=== PATIENT | male | born 1990 | race Caucasian/White ===

== ENCOUNTER 2024-02-17 17:40 | Emergency (ER) | payer MEDICAID ==
[~2024-02-17] VITALS: Ht 188 cm; Wt 86.4 kg
[2024-02-17 17:58] VITALS: BP 121/81; PULSE 67; RESP 14; O2SAT 98
[2024-02-17] MEDS ORDERED: sulfamethoxazole/trimethoprim SS (400mg/80mg) tab (single-strength) PO SCH (18:40)
[2024-02-17] MEDS ORDERED: sulfamethoxazole/trimethoprim DS (800/160mg) tablet PO ONE (18:40)
[2024-02-17] MEDS ORDERED: sulfamethoxazole/trimethoprim SS (400mg/80mg) tab (single-strength) PO ONE (18:40)
[2024-02-17] MEDS ORDERED: CEPH-585 PO (18:44)
[2024-02-17] MEDS ORDERED: SULF1TAB45 PO (18:44)
[2024-02-17] MEDS: cephalexin 250mg capsule PO ONE (19:01)
[2024-02-17] MEDS: LIDOcaine 1% 30ml preserv. free vial SQ STA (19:01)
[2024-02-17] MEDS: sulfamethoxazole/trimethoprim DS (800/160mg) tablet PO ONE (19:02)
[2024-02-17] MEDS: TETanus/Pertussis (Acell)/Diphther VAC/PF (Tdap-Adult) 0.5ml syringe IMVAC ONE ×2 (19:05→19:24)
[2024-02-17 19:06] VITALS: TEMP 98.1
== END 2024-02-17 19:25 | disposition home or self-care (01) ==
LOC: ER 17:41
DX: S90.851A Superficial foreign body, right foot, initial encounter (principal); Z79.2 Long term (current) use of antibiotics; Z79.899 Other long term (current) drug therapy; Z72.89 Other problems related to lifestyle; X58.XXXA Exposure to other specified factors, initial encounter; Y93.89 Activity, other specified; Y92.89 Other specified places as the place of occurrence of the external cause; Y99.8 Other external cause status
CPT/HCPCS: 73630; 90471; 90715; 99284

== ENCOUNTER 2024-12-28 16:57 | Emergency (ER) | payer MEDICAID, OTHER ==
[~2024-12-28] VITALS: Ht 188 cm; Wt 82.7 kg
[~2024-12-28 16:57] MED LIST: CEPH-585 PO
[2024-12-28 17:01] VITALS: BP 139/89; PULSE 86; RESP 16; O2SAT 96
--- NOTE | 2024-12-28 17:57 | Physician Documentation ---
History of Present Illness ~ Chief Complaint: Medical Clearance Stated Complaint: DRUG TEST Time Seen by MD: 17:24 Primary Medical Doctor: NONE HPI This is a 34-year-old male who presents requesting a drug test on behalf of his employer, patient reports no other symptoms or concerns. Tetanus within 5 years?: Yes Medication Reconciliation Allergies: Coded Allergies: No Known Allergies (Unverified , 02/17/24) Scheduled Cephalexin*Monohydrate* (Keflex*), 1 CAP PO QID Past Medical History Past Medical History: No Pertinent History Past Surgical History: noncontributory Alcohol Use: Occasionally Review of Systems ROS As stated above in the HPI, otherwise all systems are reviewed and negative. Physical Exam Vital Signs: Temperature: 98.2, Source: Temporal, Heart Rate: 86, Respiratory Rate: 16, BP: 139/89, Pulse Oximetry: 96, Weight: 82.650 Oxygen Flow Rate: 0 Physical Exam VITALS: Reviewed and as above. GENERAL: Alert, nontoxic appearing, no apparent distress. RESPIRATORY: No increased work of breathing, no respiratory distress, speaking in full clear sentences Progress Results/Orders Results/Orders Vital Signs 12/28/24 12/28/24 17:01 18:05 Temp 98.2 98.2 Pulse 86 Resp 16 B/P (MAP) 139/89 Pulse Ox 96 O2 Flow Rate 0 Medical Decision Making Findings This 34-year-old male presented requesting an employer drug test, I contacted our lab and was informed that we are unable to perform employer drug test as we are not a certified facility for this, I relayed this to the patient and his employer you will seek this test at a certified facility. As patient reported no physical symptoms and had no concerns he will be discharged to follow up at a facility that is able to facilitate his request. Differential Dx:Considerations: Include: Intoxication-Alcohol, Intoxication- Other drug, Substance abuse disorder, Acute delirium, Alcohol withdrawl syndrom, Medically stable Departure Disposition: 01 HOME / SELF CARE / HOMELESS Impression: Primary Impression: General medical exam Condition: Improved Discharge Instructions: Medical Screening Exam Additional Instructions: Unfortunately our laboratories not certified to do employee drug tests. You will need to follow up with a lab that is certified to do this type of testing. Please return to the emergency department for any new or worsening concerning symptoms. Referrals: NO PRIMARY CARE PROVIDER (PCP) Education Educated: Patient Educated regarding: diagnosis, treatment, prognosis, need for follow up Signature Scribe Signature: No scribe Attestation: The note accurately reflects work and decisions made by me.ISAIAH Aly 12/29/24 01:42 MICHAEL ADAN Dec 28, 2024 17:57
[2024-12-28 18:05] VITALS: TEMP 98.2
== END 2024-12-28 18:06 | disposition home or self-care (01) ==
LOC: ER 16:58
DX: Z00.8 Encounter for other general examination (principal)
CPT/HCPCS: 99281